=== PATIENT | female | born 1985 | race American Indian/Alaskan Native ===

== ENCOUNTER 2021-05-06 03:04 | Emergency (ER) | payer OTHER ==
[2021-05-06 03:27] VITALS: BP 123/87
--- NOTE | 2021-05-06 03:28 | Emergency Department Report ---
ED Extremity Problem HPI - General Chief complaint: Laceration/Recheck/Suture Stated complaint: STITCH REMOVAL Source: patient Mode of arrival: Ambulatory Limitations: No Limitations - History of Present Illness Initial comments: Patient is a 36-year-old -[place] female with no past medical history presents to the ED for recheck of a right knee laceration wound that was sutured about 1 week ago at another facility after a piece of debris that was in a trash bag cut her anterior right knee. Patient states that she had the wound sutured at another facility and was advised to come back to the ED for evaluation and suture removal after 7 days. Patient however states that the right knee pain is present and worse when she ambulates. Patient states that she is currently on oral antibiotics prophylactically. Patient denies fever, chills, nausea and vomiting, numbness and tingling or weakness of right leg, dizziness, cough, back pain or hip pain. MD Complaint: extremity pain (Right knee laceration wound recheck) -: Sudden, week(s) (1) Location: right, lower extremity (Knee sutured laceration wound), knee (Right knee sutured laceration wound recheck) History of Same: No -: No myalgia, No arthralgia, No fever, No associated dyspnea, No associated chest pain Radiation: none Severity scale (0 -10): 0 Quality: dull Improves with: nothing Worsens with: weight bearing Associated Symptoms: denies other symptoms. denies: chest pain, fever, myalgias, arthralgias, rash, other - Related Data Allergies Allergy/AdvReac Type Severity Reaction Status Date / Time No Known Allergies Allergy Unverified 05/06/21 03:15 ED Review of Systems ROS: Stated complaint: STITCH REMOVAL Other details as noted in HPI Constitutional: denies: chills, fever Eyes: denies: eye pain, eye discharge, vision change ENT: denies: ear pain, throat pain Respiratory: denies: cough, shortness of breath, wheezing Cardiovascular: denies: chest pain, palpitations Endocrine: no symptoms reported Gastrointestinal: denies: abdominal pain, nausea, diarrhea Genitourinary: denies: urgency, dysuria, discharge Musculoskeletal: arthralgia (Mild right knee pain due to a sutured anterior right knee laceration wound). denies: back pain, joint swelling Skin: other (Sutured anterior right knee laceration wound). denies: rash, lesions Neurological: denies: headache, weakness, paresthesias Psychiatric: denies: anxiety, depression Hematological/Lymphatic: denies: easy bleeding, easy bruising ED Past Medical Hx - Past Medical History Previous Medical History?: No - Surgical History Past Surgical History?: Yes Additional Surgical History: tonsillectomy - Social History Smoking Status: Never Smoker ED Physical Exam - General Limitations: No Limitations General appearance: alert, in no apparent distress - Head Head exam: Present: atraumatic, normocephalic, normal inspection - Eye Eye exam: Present: normal appearance, PERRL, EOMI Pupils: Present: normal accommodation - ENT ENT exam: Present: normal exam, normal orophraynx, mucous membranes moist, TM's normal bilaterally, normal external ear exam - Neck Neck exam: Present: normal inspection, full ROM - Respiratory Respiratory exam: Present: normal lung sounds bilaterally. Absent: respiratory distress, wheezes, rales, rhonchi, stridor, chest wall tenderness, accessory muscle use, decreased breath sounds, other - Cardiovascular Cardiovascular Exam: Present: regular rate, normal rhythm, normal heart sounds. Absent: systolic murmur, diastolic murmur, rubs, gallop - GI/Abdominal GI/Abdominal exam: Present: soft, normal bowel sounds. Absent: tenderness, guarding, rebound, hyperactive bowel sounds, hypoactive bowel sounds, organomegaly, mass - Extremities Exam Extremities exam: Present: normal inspection, full ROM, tenderness (Palpable mild anterior right knee tenderness due to a sutured laceration wound), normal capillary refill. Absent: pedal edema, joint swelling, calf tenderness - Back Exam Back exam: Present: normal inspection, full ROM. Absent: tenderness, CVA tenderness (R), CVA tenderness (L), muscle spasm, paraspinal tenderness - Neurological Exam Neurological exam: Present: alert, oriented X3, CN II-XII intact, normal gait, reflexes normal - Psychiatric Psychiatric exam: Present: normal affect, normal mood - Skin Skin exam: Present: warm, dry, intact, normal color, other (Sutured, healing anterior right knee laceration wound with no sign of infection). Absent: rash ED Course Vital Signs 05/06/21 03:10 Temperature 98.8 F Pulse Rate 92 H Respiratory 16 Rate Blood Pressure 123/87 [Right] O2 Sat by Pulse 98 Oximetry ED Medical Decision Making - Medical Decision Making This is a 36-year-old -[place] female with no past medical history presents to the ED for recheck of a right knee laceration wound that was sutured about 1 week ago at another facility after a piece of debris that was in a trash bag cut her anterior right knee. Patient states that she had the wound sutured at another facility and was advised to come back to the ED for evaluation and suture removal after 7 days. Patient however states that the right knee pain is present and worse when she ambulates. Patient states that she is currently on oral antibiotics prophylactically. In the ED, patient is alert and oriented x3 and is not in any distress. Patient is hemodynamically stable. Physical exam is unremarkable except for a sutured mildly tender anterior right knee laceration wound that is progressively healing well with no sign of infection. Patient was discharged home and advised to maintain the sutures as was placed for another 1 week since the knee is an articulating joint and removing sutures at this time is premature and would make the wound worse. Patient was therefore discharged home and advised to follow-up with her primary care physician as needed or return to the ED immediately if symptoms get worse. - Differential Diagnosis Knee laceration; infected wound; knee abrasion Critical care attestation.: If time is entered above; I have spent that time in minutes in the direct care of this critically ill patient, excluding procedure time. ED Disposition Clinical Impression: Encounter for re-check of laceration wound Laceration of skin of right knee Qualifiers: Encounter type: subsequent encounter Qualified Code(s): S81.011D - Laceration without foreign body, right knee, subsequent encounter Disposition: 01 HOME / SELF CARE / HOMELESS Is pt being admited?: No Does the pt Need Aspirin: No Condition: Stable Instructions: Sutured Wound Care, [id number], Laceration Care, Adult, [id number] Additional Instructions: Continue taking the previously prescribed medications including antibiotics. Follow-up with your primary care physician in 7 to 10 days for reevaluation. Return to the ED immediately if symptoms get worse. Otherwise return to the ED or to your primary care physician in 8 days for suture removal. Referrals: [facility] [Provider Group] - 7-10 days Forms: Work/School Release Form(ED) Time of Disposition: 03:31 Print Language: BURUNDIAN
== END 2021-05-06 03:42 | disposition home or self-care (01) ==
LOC: ED 03:04
DX: S81.011D Laceration without foreign body, right knee, subsequent encounter (principal); X58.XXXD Exposure to other specified factors, subsequent encounter
CPT/HCPCS: 99282

== ENCOUNTER 2021-05-18 06:58 | Emergency (ER) | payer OTHER ==
--- NOTE | 2021-05-18 07:30 | Emergency Department Report ---
Suture/Staple Removal - HPI Chief Complaint: Laceration/Recheck/Suture Stated Complaint: Suture Removal Time Seen by Provider: 05/18/21 07:19 When Sutures or Dang Placed: >14 Days Ago (2.5 weeks ago) Wound Location: Right knee ED Review of Systems ROS: Stated complaint: Suture Removal Other details as noted in HPI Comment: All other systems reviewed and negative Respiratory: denies: cough, shortness of breath, wheezing Cardiovascular: denies: chest pain, palpitations Skin: other (laceration to right knee s/p repair ) ED Past Medical Hx - Past Medical History Previous Medical History?: No - Surgical History Past Surgical History?: Yes Additional Surgical History: tonsillectomy - Social History Smoking Status: Never Smoker Suture Removal Exam - Exam General: Vital signs noted. No distress. Alert and acting appropriately. Wound: No Pathologic Erythema, No Tenderness, No Drainage, No Pus, No Wound Dehiscence Other Systems: All other systems reviewed and are unremarkable. - Procedure Description Procedures done: Suture removal --. Right knee. All sutures removal. Wound healing well without complication. No infection. Patient tolerated procedure well. No complications Critical care attestation.: If time is entered above; I have spent that time in minutes in the direct care of this critically ill patient, excluding procedure time. ED Disposition Clinical Impression: Visit for suture removal Disposition: 01 HOME / SELF CARE / HOMELESS Is pt being admited?: No Does the pt Need Aspirin: No Condition: Stable Instructions: Wound Closure Removal, Care After Additional Instructions: Continue to keep wound clean daily with soap and water. Dry well after each cleaning and you can apply thin layer of neosporin to wound. Follow up with PCP as needed. Return to ED if worse. Referrals: [facility] [Referring] - 3-5 Days Time of Disposition: 07:30
[2021-05-18 07:31] VITALS: BP 140/78
== END 2021-05-18 07:58 | disposition home or self-care (01) ==
LOC: ED 06:58
DX: Z48.02 Encounter for removal of sutures (principal); Z98.890 Other specified postprocedural states
CPT/HCPCS: 99282